=== PATIENT | female | born 1970 ===

== ENCOUNTER → 2023-03-30 10:00 | Outpatient (BNVA) | payer BC, SELFPAY | PROVIDERS: PCP Internal Medicine; Visit Provider Nurse Practitioner Family ==

== ENCOUNTER 2023-08-28 13:56 | Outpatient (AMB) | payer BC, SELFPAY ==
--- NOTE | 2023-08-28 13:58 | MHC.OFFVIS ---
Intake Vital Signs 08/28/23 14:00 Height 5 ft 5 in BP 118/82 Blood Pressure Location Rt brachial Position Sitting Pulse 66 Pulse Source Pulse Oximeter Pulse Oximetry (%) 98 Oxygen Delivery Method Room Air Intake Visit Reasons: Follow up for HARLEY Allergies sulfamethoxazole [From Bactrim] Allergy (Unknown, Verified 08/28/23 14:03) Hives trimethoprim [From Bactrim] Allergy (Unknown, Verified 08/28/23 14:03) Hives HPI HPI Comments History of Present Illness Details 52 y/o female patient presents for follow up of HARLEY on CPAP. The home sleep study result was significant for moderate degree of sleep apnea. The overall AHI was 25/hr and oxygen meghan was 83%. Pt started APAP at [id number]. The CPAP compliance and therapy response (07/29/23-08/27/23) reviewed with the patient. The usage days 60% and the average usage hours 3 hrs 55 min. Linda Max pressure was 10.3 and the AHI was 2.6/hr. Pt reports she can sleep better with CPAP about 7-8 hrs. She feel more alert and has more energy during daytime. Pt's AM headache and coughing has resolved since CPAP use. She also started exercise daily. [facility] Surgical History H/O: hysterectomy History of shoulder surgery S/P cholecystectomy Hx of appendectomy Family History Father Hypertension Heart disease Atrial fibrillation Social History Alcohol intake: never Patient Tobacco Use Status: Never used Tobacco Review of Systems Const All systems reviewed & are unremarkable except as noted in HPI and below ENT Reports Normal hearing present Neuro Reports Normal hearing present Physical Exam Vital Signs: Last Vital Signs Pulse 66 08/28/23 14:00 BP 118/82 08/28/23 14:00 Pulse Ox 98 08/28/23 14:00 Oxygen Delivery Method Room Air 08/28/23 14:00 Const General: cooperative Nutritional Appearance: obese Orientation/consciousness: patient oriented x3 Resp Effort & Inspection: normal respiratory effort and able to speak in complete sentences Neuro General: patient oriented x3, gait normal and moves all extremities Cranial nerves: Yes Bilaterally intact EOM present, Yes Normal facial strength present, Yes Midline tongue present, Yes Symmetric palate elevation present, Yes Normal hearing present, Yes Ability to bilaterally rotate head present and Yes Ability to bilaterally elevate shoulders present Cognition (Neuro): normal cognition Gait exam (Neuro): Normal gait present Motor exam (neuro): 5/5 motor strength present throughout, Pronator motor function not present and no tremor noted Psych Appearance: grossly normal Mental Status: mental status grossly normal Speech and movement: Normal speech and movement present Affect: normal affect Attitude: cooperative Assessment & Plan Assessment & Plan (1) HARLEY (obstructive sleep apnea): Comment: moderate degree of sleep apnea. The AHI was 25/hr and oxygen meghan was 83%. Code(s): G47.33 - Obstructive sleep apnea (adult) (pediatric) Plan Advised patient to continue to use APAP [id number] as patient experiences good clinical effects, including improved sleep quality and headache and tiredness has resolved. Stressed compliance, use CPAP nightly and more than 4 hours. Wt reduction advised. Coding Level of Care Code Est Pt Level 3 (94117) Diagnoses HARLEY (obstructive sleep apnea) G47.33
[2023-08-28 14:00] VITALS: BP 118/82; PULSE 66; O2SAT 98
== END 2023-08-28 14:22 | disposition home or self-care (01) ==
PROVIDERS: PCP Internal Medicine; Visit Provider Nurse Practitioner Family
DX: G47.33 Obstructive sleep apnea (adult) (pediatric) (principal)
CPT/HCPCS: 99213

== ENCOUNTER → 2023-08-28 13:56 | Outpatient (BNVA) | payer BC, SELFPAY | PROVIDERS: PCP Internal Medicine; Visit Provider Nurse Practitioner Family ==